=== PATIENT | female | born 1975 | race Caucasian/White ===

== ENCOUNTER 2020-01-29 20:16 | Emergency (ER) | payer BC ==
[~2020-01-29] VITALS: Ht 152.4 cm; Wt 61.0 kg
[2020-01-29 20:25] VITALS: BP 114/68
--- NOTE | 2020-01-29 20:41 | PHYS DOC ---
Past History Past Medical History: No Pertinent History Adult General Chief Complaint Chief Complaint: BURN/SMOKE INHALATION HPI HPI Patient is a 44-year-old female presenting for groves. Patient was cooking macaroni in the microwave approximately 4:30 PM when she suffered a steam burn to her right hand. Patient reports immediate redness and focal pain without radiation. She washed her hand under cold tap water for several minutes and continued about her evening routine watching movie with her family. Nonetheless, she discussed the case with her next-door neighbor who is a nurse at local urgent care who recommended she come to our ER for evaluation. On arrival, patient reports focal pain and blistering over the knuckle of her fourth digit, denies any changes in motor or sensory function, she has not taken anything for the pain, all vaccinations are up-to-date Review of Systems Review of Systems Fourteen body systems of review of systems have been reviewed. See HPI for pertinent positives and negative responses, other calle all other systems are negative, non-pertinent or non-contributory Allergies Allergies Allergies Coded Allergies Type Severity Reaction Last Updated Verified Iodine and Iodide Containing Produc Allergy Unknown 01/29/20 Yes Physical Exam Physical Exam Constitutional: Well developed, well nourished, no acute distress, non-toxic appearance. HENT: Normocephalic, atraumatic, bilateral external ears normal, oropharynx moist, no oral exudates, nose normal. Eyes: PERRLA, EOMI, conjunctiva normal, no discharge. Neck: Normal range of motion, no tenderness, supple, no stridor. Cardiovascular: Heart rate regular, sinus rhythm, no murmurs rubs or gallops Lungs & Thorax: Bilateral breath sounds clear to auscultation Abdomen: Bowel sounds normal, soft, no tenderness, no masses, no pulsatile masses. Nonsurgical abdomen, no peritoneal signs Skin: Warm, dry, no erythema, no rash. Superficial, first-degree burn noted to fifth digit/pinky of right hand and surfacing the lateral portion of the digit and painful to touch, fourth digit on right hand has similar appearance with small blister formation noted over dorsal DIP joint. Medial, radial, and ulnar nerve functions intact, all fingers magdiel with intact capillary refill less than 3 seconds Back: No tenderness, no CVA tenderness. Extremities: No tenderness, no cyanosis, no clubbing, ROM intact, no edema. Neurologic: Alert and oriented X 3, grossly normal motor & sensory function, no focal deficits noted. Psychologic: Affect normal, judgement normal, mood normal. EKG EKG [] Radiology/Procedures Radiology/Procedures [] Heart Score Risk Factors: Risk Factors: DM, Current or recent (<one month) smoker, HTN, HLP, family history of CAD, obesity. Risk Scores: Risk Factors: DM, Current or recent (<one month) smoker, HTN, HLP, family history of CAD, obesity. Course & Med Decision Making Course & Med Decision Making Based on comprehensive history and physical examination, patient suffering from superficial burn to right fifth digit and superficial partial burn to right fourth digit I discussed pathophysiology and most likely self-limiting nature of disease, I also discussed importance of supportive care going forward and close outpatient follow-up I discussed importance of good hand hygiene going forward and consideration for topical antimicrobial cream such as bacitracin or mupirocin if any signs or symptoms of infection arise, her tetanus vaccine is up-to-date so there is no indication for repeat today Strict return precautions were discussed with good understanding by patient, all questions and concerns addressed prior to ER departure in stable condition Shelly Disclaimer Shelly Disclaimer This electronic medical record was generated, in whole or in part, using a voice recognition dictation system. Departure Departure: Impression: Primary Impression: Superficial burn of multiple fingers of right hand excluding thumb Disposition: 01 DC HOME SELF CARE/HOMELESS Condition: STABLE Referrals: PCP,UNKNOWN (PCP) Patient Instructions: Burn Care IAN FREEMAN DO Jan 29, 2020 20:41
== END 2020-01-29 20:50 | disposition home or self-care (01) ==
LOC: ER 20:16
DX: T23.231A Burn of second degree of multiple right fingers (nail), not including thumb, initial encounter (principal); T31.0 Burns involving less than 10% of body surface; R20.8 Other disturbances of skin sensation; Z91.041 Radiographic dye allergy status; X13.1XXA Other contact with steam and other hot vapors, initial encounter; Y93.89 Activity, other specified; Y92.89 Other specified places as the place of occurrence of the external cause; Y99.8 Other external cause status
CPT/HCPCS: 99282